=== PATIENT | female | born 1990 | race African-American/Black ===

== ENCOUNTER 2023-12-01 09:32 | Outpatient (CLI) | payer OTHER ==
[2023-12-01 10:18] LABS: BHCG - Serum Negative (NEGATIVE); Pregs Control Background? CLEAR/WHITE (CLR/WHITE); Pregs Control Bar Appear? YES (CONTROL BAR)
[2023-12-01] MEDS ORDERED: Iopamidol 30 ML ONE (10:25)
== END 2023-12-01 09:33 | disposition home or self-care (01) ==
LOC: RAD 09:32
PROVIDERS: ATTEND Physician Assistant
DX: Z31.9 Encounter for procreative management, unspecified (principal); Z32.00 Encounter for pregnancy test, result unknown; N85.8 Other specified noninflammatory disorders of uterus; R93.89 Abnormal findings on diagnostic imaging of other specified body structures
CPT/HCPCS: 58340; 74740; 84703; Q9967